=== PATIENT | female | born 1955 | race Caucasian/White ===

== ENCOUNTER → 2018-08-30 | Day surgery (SDC) | payer OTHER ==
[2018-08-14 16:35] LABS: BASOPHILS # (AUTO) 0.1 (0.0-0.1); BASOPHILS % 0.8 % (0.0-1.0); EOSINOPHILS # (AUTO) 0.3 (0.0-0.4); EOSINOPHILS % 3.5 % (0.0-6.0); HEMATOCRIT 40.6 % (34.2-44.1); HEMOGLOBIN 13.7 g/dL (12.0-16.0); LYMPHOCYTES % 27.7 % (18.0-39.1); MEAN CORPUSCULAR HEMOGLOBIN 30.5 pg (28-32); MEAN CORPUSCULAR HGB CONC 33.7 g/dL (31-35); MEAN CORPUSCULAR VOLUME 90.4 fL (81-99); MONOCYTES # (AUTO) 0.5 (0.2-0.8); MONOCYTES % 7.6 % (4.4-11.3); NEUTROPHILS # (AUTO) 4.2 (2.1-6.9); NEUTROPHILS % 59.4 % (38.7-80.0); PLATELET COUNT 237 x10e3/uL (140-360); RED BLOOD COUNT 4.49 x10e6/uL (3.6-5.1); RED CELL DISTRIBUTION WIDTH 12.8 % (11.7-14.4)
[~2018-08-30] MED LIST: CALCIUM PO; FAMOTIDINE20 MG PO; FENTANYL CITRATE/PF 100MCG/2 ML INJ ONE; LIDOCAINE HCL 2% LOCAL INJ 5 ML SDV VIAL INJ ONE; MIDAZOLAM HCL 2 MG/2 ML VIAL ONE; OMEGA 3-6-9 CO400 MG PO; OMEPRAZOLE40 MG PO; PROPOFOL IV EMULSION 10 MG/ML 20 ML VIAL ONE; VENTOLIN HFA18 GM INH; VIT D3 PO
[2018-08-30 13:35] VITALS: BP 108/68
--- NOTE | 2018-08-30 14:50 | Operative Report ---
DATE OF PROCEDURE: August 30, 2018 Procedure done today was colonoscopy. Add to the procedure: ADDENDUM: She has also got scattered diverticulosis in the sigmoid colon. POSTOPERATIVE DIAGNOSES 1. Diverticulosis. 2. Colon polyp. Job#: [id number] EV
--- NOTE | 2018-09-04 09:02 | Operative Report ---
DATE OF PROCEDURE: August 30, 2018 Procedure was done around 12:30 in the afternoon. PREOPERATIVE DIAGNOSIS: Colon cancer screening. PROCEDURE: After informed written consent and premedications with monitored anesthesia care, standard video Olympus colonoscope was introduced into the rectum and all the way into the terminal ileum. Terminal ileum appeared to be normal. Appendiceal orifice was normal. The cecum showed a small sessile polyp, less than 1 cm removed by cold snare. Scattered diverticulosis was noted in the sigmoid colon. The rest of the colon was unremarkable. IMPRESSION 1. Colon polyp. 2. Sigmoid diverticulosis. RECOMMENDATIONS: Check results of pathology. Repeat colonoscopy in 3-5 years depending on the results of the pathology. Job#: [id number] CYNTHIA
== END | disposition home or self-care (01) ==
LOC: OR 12:00
PROVIDERS: ATTEND Internal Medicine Gastroenterology
DX: Z12.11 Encounter for screening for malignant neoplasm of colon (principal); D12.0 Benign neoplasm of cecum; K57.30 Diverticulosis of large intestine without perforation or abscess without bleeding; K21.9 Gastro-esophageal reflux disease without esophagitis; J45.909 Unspecified asthma, uncomplicated; M81.0 Age-related osteoporosis without current pathological fracture; I49.1 Atrial premature depolarization; Z01.810 Encounter for preprocedural cardiovascular examination; Z01.812 Encounter for preprocedural laboratory examination; Z87.891 Personal history of nicotine dependence; Z80.0 Family history of malignant neoplasm of digestive organs
CPT/HCPCS: 36415; 45385; 85025; 93005; J2001; J2250; J2704; 45378